=== PATIENT | male | born 1960 | race Caucasian/White ===

== ENCOUNTER → 2024-12-12 | Outpatient (CLI) | payer MEDICARE, OTHER ==
--- NOTE | 2024-12-31 00:37 | P.PCN ---
Date of Procedure: 01/11/25 Operative Findings: Home sleep study report Pertinent history This is a pleasant 64-year-old male patient who is coming in for sleep apnea evaluation. The patient was diagnosed having obstructive sleep apnea many years back. I believe, his polysomnography was done through [facility]. I do not have the original polysomnography that was done on this patient. However, the patient is carrying with him to CPAP units and he is using both machines. He states that he sleeps in 2 different bedrooms. He has the machine in each bedroom and he splits his sleep in between both of those machines. The patient has a ResMed S9 series which is set at a pressure of 10 cm of water. I was unable to obtain the compliance data from that machine. He also has a ResMed 10 Elite CPAP unit which is set at a pressure of 10 cm of water. Compliance data from the second machine indicated on average of 3.2 hours of CPAP use per night with a leak of 2 L/min and the AHI was down to 1.5. Note that the average usage numbers were low as the patient is spending his night on both those machines. He is also using a nasal pillow and the patient is caring with him at [facility] and a [employer] P30 I medium size nasal pillow. Denies snoring while on CPAP therapy. His current Clifford score is at 5. He goes to bed at 11 PM and wakes up at 7 AM in the morning. He drinks 2 cups of coffee in the morning. Drinks alcohol socially. No smoking. No substance abuse. He has no difficulties with initiating and maintaining sleep. His weight has remained stable over the past 5 years. No recent weight gain. He wakes up once or twice in the middle of the night and he takes a half an hour nap at around 2 PM. No sleep paralysis. No hallucinations. No cataplexy. No sleepwalking. No sleep talking. No grinding. No nocturnal chest pain or heartburn. Denies having a dry mouth. The patient is not using any humidity through both of those machines. No symptoms of restlessness in his lower extremities. No cardiovascular disease. No sleep any motor vehicle accidents because of feeling drowsy or sleepy. Physical findings Body mass index is 33.5 Technical description The ResMed ApneaLink system was used to complete home sleep study. This is a type III home sleep study evaluation. The total recording duration was 6 hours and 58 minutes. The study started 11:11 PM and ended at 6:10 AM. There was a total of 6046 minutes of flow evaluation and 6 hours of 47 minutes of oxygen saturation evaluation. Results The respiratory analysis showed a total of 215 obstructive apneas and 57 obstructive hypopneas. The resulting AHI was 40.1. Disease was worse in the supine body position. Oxygenation analysis The patient had a baseline pulse ox of 97% while awake and the average pulse ox during sleep was 95% and the patient's lowest pulse ox was 84%. The patient spent only 3 minutes of the sleep time below pulse ox of 89%. Cardiac summary Average heart rate was 52 with a minimum heart rate of 40 and a maximum heart of 82 Assessment Obstructive sleep apnea. The patient underwent a home sleep study to confirm diagnosis the patient continues to have severe obstructive sleep apnea with an AHI of 40.1, worse in the supine body position. Note that the patient has been successfully treated over the years with a CPAP pressure of 10 cm of water. Original polysomnography is not available. The patient is interested in updating his CPAP units. As mentioned, the patient is spending time on both of his CPAP unit. He has a ResMed 10 Elite and a ResMed S9 series and both of those machines are set at a pressure of 10 cm of water and the compliancy data from his ResMed 10 Elite CPAP unit is adequate and the patient is AHI is down to 1.5 while on treatment. No significant leaks. Using nasal pillow Hypertension Hypersomnia, improved on CPAP therapy Plan Will proceed with ordering a ResMed 11 for this patient and this will be set at a pressure of 10 cm of water. The patient will be kept on a [employer] P30I nasal pillows. Encouraged weight loss, maintain good sleep hygiene measures. Maintain regular sleep schedule. The patient will see him back in the office in 30 to 90 days after obtaining his new CPAP unit for a compliance to check on his new machine. He is very much committed to CPAP therapy and the patient is a longtime CPAP user.
== END ==
LOC: 3 N SLEEP 17:46
PROVIDERS: ATTEND Internal Medicine Critical Care Medicine
DX: G47.33 Obstructive sleep apnea (adult) (pediatric) (principal); I10 Essential (primary) hypertension; Z99.89 Dependence on other enabling machines and devices